=== PATIENT | female | born 1950 | race Caucasian/White ===

== ENCOUNTER → 2016-06-27 | Outpatient (CLI) | payer OTHER ==
[~2016-06-27] MED LIST: ALBUAER19 INH; ATOR10TA88 PO; CEFU1TAB36 PO; FLUT0.15 NAE; MULT-506 PO; NAPR1TAB9 PO; SYN112 PO
[2016-06-27 12:54] LABS: ALT/SGPT 25 U/L (12-78); BLOOD UREA NITROGEN 15 mg/dl (7-18); BUN/CREATININE RATIO 20.4 (10-20); CARBON DIOXIDE 30 mmol/L (21-32); CHLORIDE 106 mmol/L (98-107); CHOLESTEROL 189 mg/dl (0-200); CREATININE 0.73 mg/dl (0.60-1.20); GLUCOSE 84 mg/dl (70-99); SODIUM 142 mmol/L (136-145)
[2016-06-27 13:04] LABS: ALB/GLOB RATIO 1.1 (0.9-2); ALKALINE PHOSPHATASE 77 U/L (45-117); AST/SGOT 15 U/L (15-37); CHOLESTEROL/HDL RATIO 2.6; HDL CHOLESTEROL 73 mg/dl; LDL CHOLESTEROL CALCULATED 98 mg/dl; THYROID STIMULATING HORMONE 0.752 uIu/ml (0.300-4.500); TRIGLYCERIDES 92 mg/dl (0-150); VERY LOW DENSITY LIPOPROT CALC 18 mg/dl
== END | disposition home or self-care (01) ==
LOC: C.LABBFT 07:57
PROVIDERS: ATTEND Nurse Practitioner
DX: E78.00 Pure hypercholesterolemia, unspecified (principal); E03.9 Hypothyroidism, unspecified

== ENCOUNTER → 2017-07-16 | Outpatient (CLI) | payer OTHER ==
[~2017-07-16] MED LIST changes: +ATOR10TA82 PO; -ATOR10TA88 PO
[2017-07-16 16:53] LABS: BASO % 0.3 %; BASO ABS # 0.02 K/uL (0-0.2); EOS % 3.7 %; EOS ABS # 0.23 K/uL (0-0.5); HEMATOCRIT 44.3 % (37-47); HEMOGLOBIN 14.5 g/dL (12.0-16.0); IG# 0.01 K/uL (0.00-0.02); LYMPH % 33.2 %; LYMPH ABS # 2.05 K/uL (1.2-3.4); MEAN CORPUSCULAR HEMOGLOBIN 29.1 pg (25-34); MEAN CORPUSCULAR HGB CONC 32.7 g/dl (32-36); MEAN PLATELET VOLUME 9.9 fL (7.4-10.4); MONO % 8.1 %; NEUT % 54.5 %; NEUT ABS # 3.36 K/uL (1.4-6.5); PLATELET COUNT 303 K/uL (130-400); RED CELL DISTRIBUTION WIDTH SD 45.4 fL (36.4-46.3); WHITE BLOOD COUNT 6.17 K/uL (4.8-10.8)
[2017-07-16 16:58] LABS: ALBUMIN 3.7 gm/dl (3.4-5.0); ALT/SGPT 23 U/L (12-78); AST/SGOT 11 U/L (15-37); BLOOD UREA NITROGEN 12 mg/dl (7-18); CALCIUM 8.8 mg/dl (8.5-10.1); CARBON DIOXIDE 27 mmol/L (21-32); CREATININE 0.69 mg/dl (0.60-1.20); GLUCOSE 86 mg/dl (70-99); POTASSIUM 4.2 mmol/L (3.5-5.1); SODIUM 138 mmol/L (136-145)
[2017-07-16 17:09] LABS: ALKALINE PHOSPHATASE 80 U/L (45-117); CHOLESTEROL 156 mg/dl (0-200); LDL CHOLESTEROL CALCULATED 78 mg/dl; TOTAL PROTEIN 7.4 gm/dl (6.4-8.2)
== END | disposition home or self-care (01) ==
LOC: C.LABBFT 12:26
PROVIDERS: ATTEND Nurse Practitioner
DX: E03.9 Hypothyroidism, unspecified (principal); E78.00 Pure hypercholesterolemia, unspecified

== ENCOUNTER 2024-05-22 01:12 | Observation (INO) ==
--- OUTSIDE RECORDS SUMMARY | 2024-05-22 01:18 | External Medical Summary | Summary of Care ---
Author Name Unknown Organization [facility] Address [address] [place] [place] [address] Phone [phone] Care Team Providers Care Spectacle Truer Name Role Phone Connie Gan MD Primary Care Provider [phone] Encounter Details Date Type Department Care Team (Late st Contact Info) Description 04/30/2024 Population Health External Data Unspecified Department Allergies Active Allergy Reactions Criticality Noted Date Comments Neomycin-Bacitracin Zn-Polymyx 05/06 documented as of this encounter (statuses as of 04/30/2024) Medications LEVOTHYROXINE SODIUM 112 MCG OR TABS 1 tab daily Active ATORVASTATIN CALCIUM 10 MG PO TABS 1 tab daily Active FLUTICASONE PROPIONATE 50 MCG/ACT NA SUSP as needed Acti ve ALEVE 220 MG PO CAPS as needed Active Azelastine HCl 0.1 % nasal sprayIndications :Angioma As needed 8 Active Ketoconazole 2 % External Shampoo (Nizoral)Indicat ions:Seborrheic dermatitis of scalp Wash scalp 1-2x a week 120 mL 1 2 Active Additional Information Patient not taking.Reported on 11/19/2022 CoQ10 100 MG Oral Capsule Take by mouth. Ac tive Triamcinolone Acetonide 0.1 % External Ointment (Aristocort)Sudha cations:Dermatit is Apply to hands/hairline up to twice daily as needed 30 g 1 3 Active ZyrTEC Allergy 10 MG Oral Capsule (Cetirizine HCl) Take 1 Capsule by mouth in the morning. Active Betamethasone Dipropionate 0.05 % External Ointment Apply to hands two times a day for 2 weeks, then stop for 2 weeks 45 g 1 4 Active documented as of this encounter (statuses as of 04/30/2024) Active Problems Problem Noted Date Diagnosed Date Family history of malignant melanoma 06/08/2013 documented as of this encounter (statuses as of 04/30/2024) Resolved Problems Problem Noted Date Diagnosed Date Resolved Date Encounter for examination fo r normal comparison and control in clinical research program 01/13/2018 11/09/2019 Overview (07/25/2020): DO NOT DELETE Viddyad DETECT Study: Project # [id number], Lock Maintenance Supervisor: Mehdi Aviles, PhD. SUMMARY: Goal: Establish test characteristics (sensitivity, specificity, PPV, NPV) of a circulating tumor DNA (ctDNA)-based test for cancer. Hypothesis: Circulating tumor DNA (ctDNA) and elevated protein biomarkers (together, the marker panel) can be detected in asymptomatic individuals with early cancer. Specific Aim 1: Determine the prevalence of a positive marker panel test in a prospective clinical cohort of 10,000 asymptomatic women ages 65 to 75 years. Specific Aim 2: Determine the sensitivity, specificity, positive predictive value (PPV) and negative predictive value (NPV) of a marker panel test to identify histologically proven cancers that develop within 5-years of the marker panel evaluation. CONTACTS: During normal business hours, contact study staff at ; after hours Lock Maintenance Supervisor via the [facility] clamp operator . Please contact study team before resolving/deleting from patients problem list. Study phone number: [phone]. Diagnosis changed due to Research Module. Go to Snapshot for study details. Encounter for examination fo r normal comparison and control in clinical research program 01/13/2018 12/07/2021 Overview (07/25/2020): DO NOT DELETE - [facility]iddyad DETECT Study: Project # [id number], Lock Maintenance Supervisor: Shawn Horowitz, MS, MPH. SUMMARY: Goal: Establish test characteristics (sensitivity, specificity, PPV, NPV) of a circulating tumor DNA (ctDNA)-based test for cancer. - Hypothesis: Circulating tumor DNA (ctDNA) and elevated protein biomarkers (together, the marker panel) can be detected in asymptomatic individuals with early cancer. - Specific Aim 1: Determine the prevalence of a positive marker panel test in a prospective clinical cohort of 10,000 asymptomatic women ages 65 to 75 years. - Specific Aim 2: Determine the sensitivity, specificity, positive predictive value (PPV) and negative predictive value (NPV) of a marker panel test to identify histologically proven cancers that develop within 5-years of the marker panel evaluation. - CONTACTS: During normal business hours, contact study staff at ; after hours Lock Maintenance Supervisor via the [facility] clamp operator . - Please contact study team before resolving/deleting from patients problem list. Study phone number: [phone]. Diagnosis changed due to Research Module. Go to Snapshot for study details. documented as of this encounter (statuses as of 04/30/2024) Social History Tobacco Use Types Packs/Day Years Used Date Smoking Tobacco: Never Smokeless Tobacco: Never Alcohol Use Standard Drinks/Week Comments Yes 0 (1 standard drink = 0.6 oz pur e alcohol) occ Utilities Answer Date Recorded Do you have trouble paying y our heating, water, or electric bill? (Adult - for ages 18 years and over) Not on file 09/24/2023 Is your family able to pay t he heat, water, or electric bill? (Household - for ages 0-17 years) Not on file 09/24/2023 Does your family have access to good internet? (Household - for ages 0-17 years) Not on file 09/24/2023 Social Connections Answer Date Recorded How often do you feel lonely or isolated from those around you? (Adult - for ages 18 years and over) Not on file 09/24/2023 Comments Unknown Sex and Gender Information Value Date Recorded Sex Assigned at Not on file Legal Sex Female 7:21 AM EST Gender Identity Not on file Sexual Orientation Not on file documented as of this encounter Plan of Treatment Upcoming Encounters Date Type Department Care Team (Late st Contact Info) Description 11/11/2024 1:40 PM EDT Office Visit [facility] [place] [address] [place] [address] Natali Mijares PA-C [address] [place] [address] Health Maintenance Due Date Last Done Comments Lipid Panel 1951 Depression Screening 1963 Hepatitis C Screening 1969 TSH 1969 DTap/Tdap Vaccines (1 - Tdap) 1970 Cologuard 1996 Colonoscopy 1996 Colorectal Cancer Screening 1996 Fecal Occult Blood Test 1996 Sigmoidoscopy 1996 Zoster Vaccines (2 of 2) 04/14/2013 013, 02/17/2013 COVID-19 Vaccine (1 - 2023-2 5 season) 2023 Influenza Vaccine (FLU shot) (#1) 2023 01/22/2019 Mammogram 04/24/2024 04/24/2023, 04/18/2022, 04/12/2021 DXA Scan 01/22/2030 01/22/2023 Pneumococcal Vaccine: 50+ Years Completed 07/16/2017, 07/02/2016 HPV (Gardasil) Vaccine Aged Out No lo nger eligible based on patient's age to complete this topic Hepatitis B Vaccine Aged Out No longe r eligible based on patient's age to complete this topic MENINGOCOCCAL (MENACTRA/MENVEO) Aged Out No longer eligible b ased on patient's age to complete this topic documented as of this encounter Medical Devices Not on filedocumented as of this encounter Care Teams Spectacle Truer Relationship Specialty Start Date End Date Connie Gan MD [address] [place] [address] PCP - General Internal Medicine 06/08/13 documented as of this encounter
[2024-05-22 01:20] VITALS: TEMP 98.2
[2024-05-22] MEDS: AMIODARONE 150MG / 100ML D5W IV ONE (01:37)
[2024-05-22 01:44] LABS: iSTAT Hemoglobin 14.3 g/dl (12.0-16.0); iSTAT Ionized Calcium 1.12 mmol/l (1.12-1.32); iSTAT Potassium 3.5 mmol/L (3.3-5.0)
[2024-05-22 01:52] LABS: Basophils # (auto) 0.07 K/uL (0.00-0.20); Basophils % (auto) 0.7 %; Eosinophils # (auto) 0.31 K/uL (0.00-0.50); Hematocrit (blood only) 42.9 % (37.0-47.0); Hemoglobin 14.1 g/dl (12.0-16.0); Immature Granulocytes # (auto) 0.03 K/uL (0.01-0.20); Immature Granulocytes % (auto) 0.3 %; Lymphocytes # (auto) 4.44 K/uL (1.20-3.40); Lymphocytes % (auto) 42.7 %; Mean Corpuscular Hemoglobin 29.4 pg (25.0-34.0); Mean Corpuscular Hgb Conc 32.9 g/dL (32.0-36.0); Mean Corpuscular Volume 89.6 fL (80.0-100.0); Mean Platelet Volume 9.5 fL (9.4-12.4); Monocytes # (auto) 0.93 K/uL (0.11-0.59); Monocytes % (auto) 8.9 %; Neutrophils # (auto) 4.62 K/uL (1.40-6.50); Neutrophils % (auto) 44.4 %; Platelet Count 319 K/uL (130-400); RDW Coefficient of Variation 13.2 % (11.5-14.5); RDW Standard Deviation 43.2 fL (36.4-46.3); Red Blood Count 4.79 M/uL (4.20-5.40)
[2024-05-22 02:04] LABS: Albumin Globulin Ratio 1.5 (0.9-2); Albumin Level 4.5 gm/dl (3.4-5.0); BUN Creatinine Ratio 22.9 (10-20); Bilirubin,Total 0.3 mg/dl (0.2-1.0); Calcium 9.2 mg/dl (8.6-10.3); Creatinine Clr Calc Pharmacy 59.9 ml/min; Potassium 3.5 mmol/L (3.5-5.1); Total Protein 7.5 gm/dl (6.0-8.3)
[2024-05-22 02:11] LABS: Troponin I High Sensitivity 13.5 pg/ml (0-14)
[2024-05-22] MEDS ORDERED: 0.2 MICRON FILTER SET 1 EACH IV ONE ×2 (02:17→02:18)
[2024-05-22 02:20] LABS: Thyroid Stimulating Hormone 6.571 uIu/ml (0.300-4.500)
[2024-05-22] MEDS: AMIODARONE 360MG / 200ML D5W IV ONE (02:20)
[2024-05-22 02:21] LABS: INR 0.9 (0.9-1.1); Partial Thromboplastin Time 28 Seconds (21-31); Prothrombin Time 9.9 Seconds (9.0-12.0)
[2024-05-22] MEDS: AMIODARONE / D5W 150 MG/100 ML BAG IV STA ×2 (02:26→02:27)
[2024-05-22 02:36] LABS: Phosphorus 4.1 mg/dl (2.5-4.9)
[2024-05-22] MEDS: SODIUM CHLORIDE 0.9% 1,000 ML IV ONE (02:38)
[2024-05-22 02:55] LABS: T4 Free Thyroxine 1.01 ng/dl (0.61-1.60)
--- NOTE | 2024-05-22 03:28 | XRay Report ---
EXAM: XR chest 1V portable CLINICAL HISTORY: Dysrhythmia TECHNIQUE: An X-ray image of the chest is obtained in AP projection. COMPARISON: 07/08/2014. FINDINGS: Pulmonary Parenchyma: Small opacities seen in the lower zones of both lungs, more prominent on the left side. Prominent perihilar bronchovascular markings. Hyperinflated both lungs. No evidence of pleural effusion or pleural thickening. Heart and Mediastinum: Mild cardiomegaly. Atherosclerotic changes of the aortic arch. No mediastinal widening or masses. No hilar or mediastinal lymphadenopathy. Bony Thorax: Degenerative changes of the visualized skeleton. Bony thorax appears intact without fractures or deformities. Soft Tissues: Soft tissues overlying the chest wall are unremarkable. IMPRESSION: 1. Mild cardiomegaly with perihilar congestion. 2. Small right lower zone opacity. Redemonstration of left lower zone opacity. This could be due to atelectasis/inflammatory or infectious process. Need clinical correlation. 3. Otherwise, no significant interval changes. Electronically signed by Arturo Durham 05-22-2024 03:28 AM
--- NOTE | 2024-05-22 03:31 | Pre Anesthesia Assessment ---
Date of Service May 22, 2024 Pre Sedation Assessment Vital Signs Temp Pulse Pulse Resp BP BP Pulse Ox 05/22/24 07:50 60 05/22/24 06:14 64 17 132/80 97 05/22/24 05:00 65 18 145/88 H 98 05/22/24 04:50 75 17 145/88 H 96 05/22/24 04:50 73 17 95 05/22/24 04:40 66 18 134/87 97 05/22/24 04:35 67 20 132/88 99 05/22/24 04:30 66 18 152/87 H 99 05/22/24 04:25 65 20 144/79 H 99 05/22/24 04:20 68 16 129/82 97 05/22/24 04:15 71 18 144/80 H 96 05/22/24 04:10 72 20 130/79 97 05/22/24 04:05 70 16 138/83 99 05/22/24 04:00 69 18 135/88 99 05/22/24 03:55 72 18 138/82 99 05/22/24 03:50 69 20 95/71 L 94 05/22/24 03:45 73 20 100/76 98 05/22/24 03:41 82 05/22/24 03:40 157 H 18 108/74 100 05/22/24 03:35 160 H 20 107/77 96 05/22/24 03:00 158 H 20 132/93 97 05/22/24 02:31 166 H 20 129/71 95 05/22/24 02:00 144 H 18 108/73 95 05/22/24 01:58 151 H 05/22/24 01:43 157 H 20 134/77 95 05/22/24 01:31 218 H 05/22/24 01:24 183 H 05/22/24 01:16 36.8 C 196 H 18 141/90 H 96 05/22/24 01:13 95 O2 Del Method O2 Flow Rate 05/22/24 07:50 05/22/24 06:14 Room Air 05/22/24 05:00 Room Air 05/22/24 04:50 Room Air 05/22/24 04:50 Room Air 05/22/24 04:40 Room Air 05/22/24 04:35 Room Air 05/22/24 04:30 Room Air 05/22/24 04:25 Room Air 05/22/24 04:20 Room Air 05/22/24 04:15 Room Air 05/22/24 04:10 Room Air 05/22/24 04:05 Nasal Cannula 2 05/22/24 04:00 Nasal Cannula 2 05/22/24 03:55 Nasal Cannula 4 05/22/24 03:50 Nasal Cannula 4 05/22/24 03:45 Nasal Cannula 4 05/22/24 03:41 05/22/24 03:40 Nasal Cannula 4 05/22/24 03:35 Room Air 05/22/24 03:00 Room Air 05/22/24 02:31 Room Air 05/22/24 02:00 Room Air 05/22/24 01:58 05/22/24 01:43 Room Air 05/22/24 01:31 05/22/24 01:24 05/22/24 01:16 Room Air 05/22/24 01:13 Room Air 0 Cardiovascular + tachycardic and + irregularly irregular + capillary refill normal Respiratory normal respiratory effort, lungs clear to auscultation Pre-Sedation Airway Assessment Smoking Status: Never smoker Mallampati Class: I ASA: ASA1 NPO Status Date of Last Intake of Fluids: 05/21/24 Time of Last Intake of Fluids: 23:00 Last Oral Intake of Fluids Comment: water Date of Last Intake of Solid Food: 05/21/24 Time of Last Intake of Solid Foods: 21:00 Last Intake of Solids Comment: pizza Procedure Planning Contraindications for Sedation: none Current Medications Reviewed: Yes Notes The planned sedation has been discussed with the patient. Informed Consent was obtained. I have identified the patient, determined the appropriateness of sedation and have assessed the patient immediately prior to the procedure. All medicine(s) and interventions are by my order.
--- NOTE | 2024-05-22 04:07 | History & Physical Report ---
Date of Service May 22, 2024 Assessment & Plan (1) Atrial fibrillation with RVR: (2) Atrial premature depolarization with aberrant ventricular conduction: (3) Left bundle branch block: (4) Palpitations: (5) History of bradycardia: (6) Tachy-wiley syndrome: Plan The patient is a 73-year-old female with a past medical history including syncope, nontoxic multinodular goiter, osteopenia, left bundle branch block, hypothyroidism, hypercholesterolemia, colonic diverticulosis, seborrheic dermatitis, chronic venous insufficiency, post bilateral GSV ablation, and disorders of trigeminal nerve.The patient presented to the emergency department with complaint of increased heart rate while working in her basement, and radiating up into her neck. She has had a cardiac implantable electronic device inplanted and monitored by Dr. Rober Marie. [facility], patient was found to be in atrial fibrillation with RVR with aberrancy, with rate up to a maximum of 218. Patient remained in this variable rapid rate from 150s to 180s for at least 3 hours, despite being placed on amiodarone bolus/drip, and then underwent synchronized cardioversion by ED physician Dr. Garrett. She was then referred for evaluation to the [facility] service after successful conversion to normal sinus rhythm ranging in the 70s to 80s. Patient does have a known history of sinus bradycardia, for which the device had been implanted initially and had been noted to have bradycardic intervals in the past. #Atrial fibrillation with RVR with aberrancy/history of bradycardia/tachybradycardia syndrome/left bundle branch block- Patient had initially been started on amiodarone bolus/drip, with rate primarily be maintained in the 150s to 180s. She did undergo synchronized cardioversion after conscious sedation as noted by the ED She successfully converted to normal sinus rhythm in the 70s to 80s with maintained blood pressure Will continue amiodarone drip per protocol Start apixaban 5 mg p.o. twice daily The patient will be admitted to telemetry for serial cardiac enzymes, serial EKG's, cardiac rhythm monitoring and a 2-D echocardiogram with Dopplers. Potassium 3.5, will be placed on normal saline plus KCl 20 mEq at 100 mL/h x 1 L Magnesium level 2.0 Follow serial CBC with differential, chemistry profile and magnesium levels Consult cardiology Hyperlipidemia- Continue atorvastatin 10 mg daily Hypothyroidism- Continue levothyroxine 112 mcg daily History of Present Illness Chief Complaint: The patient presented to the emergency department with complaint of increased h eart rate while working in her basement, and radiating up into her neck. She had a cardiac implantable electronic device planted and monitored by Dr. Rober Marie. Upon arrival to emergency department, patient was found to be in atrial fibrillation with RVR, with rate up to a maximum of 218. Patient remained in this variable rapid rate from 150s to 180s for at least 3 hours, and then underwent synchronized cardioversion by Dr. Garrett., and then referred for evaluation to the [facility] service after successful conversion to normal sinus rhythm ranging in the 70s to 80s. Patient does have a known history of sinus bradycardia, for which the device had been implanted and had been noted to have bradycardic intervals in the past. Primary Care Provider: FRANCE Lucas The patient is a 73-year-old female with a past medical history including syncope, nontoxic multinodular goiter, osteopenia, left bundle branch block, hypothyroidism, hypercholesterolemia, colonic diverticulosis, seborrheic dermatitis, chronic venous insufficiency, post bilateral GSV ablation, and disorders of trigeminal nerve.The patient presented to the emergency department with complaint of increased heart rate while working in her basement, and radiating up into her neck. She had a cardiac implantable electronic device planted and monitored by Dr. Rober Marie. Upon arrival to emergency department, patient was found to be in atrial fibrillation with RVR, with rate up to a maximum of 218. Patient remained in this variable rapid rate from 150s to 180s for at least 3 hours, and then underwent synchronized cardioversion by Dr. Garrett., and then referred for evaluation to the [facility] s ervice after successful conversion to normal sinus rhythm ranging in the 70s to 80s. Patient does have a known history of sinus bradycardia, for which the device had been implanted and had been noted to have bradycardic intervals in the past. Allergies Allergy/AdvReac Type Severity Reaction Status Date / Time bacitracin Allergy Mild INFLAMMATIO Verified 12/23/23 14:39 N neomycin Allergy Mild INFLAMMATIO Verified 12/23/23 14:39 N polymyxin B Allergy Mild INFLAMMATIO Verified 12/23/23 14:39 N tar shampoo Allergy Severe hives/welts Uncoded 12/23/23 14:39 on skin, looked like large bug bites Home Medications Medication Instructions Recorded Confirmed Type cetirizine 10 mg capsule (Zyrtec) 10 mg PO DAILY 09/20/23 05/22/24 History fluticasone propionate 50 2 spray intranasal DAILY #16 grams 10/04/23 05/22/24 Rx mcg/actuation nasal spray,suspension coenzyme Q10 100 mg capsule 100 mg PO DAILY 12/23/23 05/22/24 History azelastine 137 mcg (0.1 %) nasal 2 spray intranasal .COMPLEX #30 mL 02/18/24 0 05/22/24 Rx spray atorvastatin 10 mg tablet 10 mg PO DAILY #90 tabs 04/28/24 05/22/24 Rx levothyroxine 112 mcg tablet 112 mcg PO DAILY #90 tabs 04/28/24 05/22/24 Rx Past Med/Surg History Problem List (Updated 05/22/24 @ 05:29 by Nathan Malhotra MD) Tachy-wiley syndrome History of bradycardia Atrial premature depolarization with aberrant ventricular conduction Atrial fibrillation with RVR Encounter for interrogation of cardiac recorder Syncope Postmenopausal estrogen deficiency Varicose veins of both lower extremities (Acute) Osteopenia (Acute) Nontoxic multinodular goiter (Acute) Left bundle branch block (Acute) Hypothyroidism (Chronic 10/11/10) Hypercholesterolemia (Acute) Diverticulosis of colon (Acute) Seborrheic dermatitis Palpitations Chronic venous insufficiency Other disorders of trigeminal nerve Medical History Pain in both lower legs Trochanteric bursitis History of ankle fracture Surgical History History of tubal ligation History of tooth extraction History of colonoscopy Family History Father Myocardial infarction Allergic rhinitis Asthma Sister Cancer of parotid gland Mother Hypertension Hypercholesterolemia Grandmother (Maternal) Ovarian cancer Brother Renal cell carcinoma Denies family history of Prostate cancer Diabetes Breast cancer Colorectal cancer Social History Smoking Status: Never smoker Second Hand Exposure: Yes; Do You Dip or Chew Tobacco: No; Hx Alcohol Use: Yes Hx Substance Use: No Preferred Language: Upper Sorbian Communication Ability: Effective Visual Impairment: No Limitations Hearing Ability: Normal Beliefs That Will Affect Care: None marital status: Current Living Situation: Spouse Current Living Situation Comment: lives with ex- current occupational status: retired 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 [employer] Feels Safe at Home: Yes Childhood Exposure to Second-Hand Smoke: Yes Diet: regular caffeine: No during the past year weight has: remained stable Dental Care, Regularly: Yes Physical Activity Frequency: 1-2 Times per Week Seatbelt Use: always Sunscreen Use: Yes Assistive Devices: None Review of Systems Review of Systems: The patient denies shortness of breath, dyspnea on exertion, cough, lower extremity swelling, sore throat, fevers, chills, sweats, weight change, fatigue, nausea, vomiting, diarrhea , constipation, abdominal pain, pelvic pain, blood in urine or stool, dysuria, urinary frequency or urgency, lightheadedness, dizziness, headache, memory loss, loss of consciousness, rash, abnormal bruising or bleeding, imbalance, focal or generalized weakness, numbness or tingling in arms or legs, generalized arthralgias or myalgias, back or neck pain, or night sweats. The review of systems is otherwise negative other than for that already noted above, and at least 10 systems have been reviewed. Physical Exam Physical Exam: The patient is awake, alert and oriented 3, well developed and well nourished, normocephalic and atraumatic, lying in bed and in no acute distress. HEENT--PERRL, EOMI, mucous membranes and oropharynx mildly dry. Neck--supple. No JVD. No bruits. Thyroid normal, trachea midline, no adenopathy. Heart--normal S1 and S2. Status post cardioversion. No murmurs, rubs or gallops. Lungs--clear bilaterally, no respiratory distress, no accessory muscle use. Abdomen--normal bowel sounds and soft. Nontender. Nondistended, no hernias or masses, no organomegaly. Extremities--no cyanosis or clubbing. No edema. There are good distal pulses b/l. Dermatologic--normal skin turgor, normal color, no abnormal lymph nodes, no rash. Neurologic--cranial nerves II through XII grossly intact. Rheumatologic--normal range of motion. Psychiatric--normal affect. Results & Data Results & Data Vital Signs (Past 12 Hours) Vital Signs Temp Pulse Pulse Resp BP BP Pulse Ox 05/22/24 03:41 82 05/22/24 03:00 158 H 20 132/93 97 05/22/24 02:31 166 H 20 129/71 95 05/22/24 02:00 144 H 18 108/73 95 05/22/24 01:58 151 H 05/22/24 01:43 157 H 20 134/77 95 05/22/24 01:31 218 H 05/22/24 01:24 183 H 05/22/24 01:16 36.8 C 196 H 18 141/90 H 96 05/22/24 01:13 95 O2 Del Method O2 Flow Rate 05/22/24 03:41 05/22/24 03:00 Room Air 05/22/24 02:31 Room Air 05/22/24 02:00 Room Air 05/22/24 01:58 05/22/24 01:43 Room Air 05/22/24 01:31 05/22/24 01:24 05/22/24 01:16 Room Air 05/22/24 01:13 Room Air 0 Laboratory Results Laboratory Results WBC 10.40 K/ul (4.8-10.8) 05/22/24 01:27 RBC 4.79 M/uL (4.20-5.40) 05/22/24 01:27 Hgb 14.1 g/dl (12.0-16.0) 05/22/24 01:27 POC Hgb 14.3 g/dl (12.0-16.0) 05/22/24 01:30 Hct 42.9 % (37.0-47.0) 05/22/24 01:27 POC Hct 42 % (37-47) 05/22/24 01:30 MCV 89.6 fL (80.0-100.0) 05/22/24 01:27 MCH 29.4 pg (25.0-34.0) 05/22/24 01:27 MCHC 32.9 g/dL (32.0-36.0) 05/22/24 01:27 RDW Std Deviation 43.2 fL (36.4-46.3) 05/22/24 01: RDW Coeff of Jovanny 13.2 % (11.5-14.5) 05/22/24 01: Plt Count 319 K/uL (130-400) 05/22/24 01:27 MPV 9.5 fL (9.4-12.4) 05/22/24 01:27 Immature Gran % (Auto) 0.3 % 05/22/24 01: Neut % (Auto) 44.4 % 05/22/24 01:27 Lymph % (Auto) 42.7 % 05/22/24 01:27 [place] % (Auto) 8.9 % 05/22/24 01: Eos % (Auto) 3.0 % 05/22/24 01: Baso % (Auto) 0.7 % 05/22/24 01: Neut # (Auto) 4.62 K/uL (1.40-6.50) 05/22/24 01:27 Lymph # (Auto) 4.44 K/uL (1.20-3.40) H 05/22/24 01:27 [place] # (Auto) 0.93 K/uL (0.11-0.59) H 05/22/24 01:27 Eos # (Auto) 0.31 K/uL (0.00-0.50) 05/22/24 01:27 Baso # (Auto) 0.07 K/uL (0.00-0.20) 05/22/24 01: Immature Gran # (Auto) 0.03 K/uL (0.01-0.20) 05/22/24 01:27 PT 9.9 Seconds (9.0-12.0) 05/22/24 01:27 INR 0.9 (0.9-1.1) 05/22/24 01: APTT 28 Seconds (21-31) 05/22/24 01: PTT Ratio 1.0 05/22/24 01:27 POC Sodium 140 mmol/L (135-144) 05/22/24 01:30 Sodium 140 mmol/L (136-145) 05/22/24 01:27 POC Potassium 3.5 mmol/L (3.3-5.0) 05/22/24 01:30 Potassium 3.5 mmol/L (3.5-5.1) 05/22/24 01:27 POC Chloride 105 mmol/L (101-112) 05/22/24 01:30 Chloride 105 mmol/L (98-107) 05/22/24 01:27 Carbon Dioxide 26 mmol/L (21-32) 05/22/24 01:27 POC Total CO2 24 mmol/L (24-31) 05/22/24 01:30 Anion Gap 9 (3-11) 05/22/24 01:27 POC Anion Gap 16.0 mmol/L (16-25) 05/22/24 01:30 POC BUN 22 mg/dl (7-18) H 05/22/24 01:30 BUN 22 mg/dl (6-23) 05/22/24 01:27 Creatinine 0.96 mg/dl (0.6-1.2) 05/22/24 01:27 POC Creatinine 1.0 mg/dl (0.6-1.3) 05/22/24 01:30 Est Cr Clr Drug Dosing 59.9 ml/min 05/22/24 01:27 eGFR 62.86 05/22/24 01:27 BUN/Creatinine Ratio 22.9 (10-20) H 05/22/24 01:27 Glucose 126 mg/dl (70-99(Fasting)) H 05/22/24 01:27 POC Glucose (other) 126 mg/dl (70-99) H 05/22/24 01:30 Calcium 9.2 mg/dl (8.6-10.3) 05/22/24 01:27 POC Ioniz Calcium Susana 1.12 mmol/l (1.12-1.32) 05/22/24 01:30 Phosphorus 4.1 mg/dl (2.5-4.9) 05/22/24 01:27 Magnesium 2.0 mg/dl (1.7-2.4) 05/22/24 01:27 Total Bilirubin 0.3 mg/dl (0.2-1.0) 05/22/24 01:27 AST 19 U/L (13-39) 05/22/24 01:27 ALT 20 U/L (7-52) 05/22/24 01:27 Alkaline Phosphatase 90 U/L (34-104) 05/22/24 01:27 Troponin I High Sens 13.5 pg/ml (0-14) 05/22/24 01:27 Total Protein 7.5 gm/dl (6.0-8.3) 05/22/24 01:27 Albumin 4.5 gm/dl (3.4-5.0) 05/22/24 01:27 Globulin 3.0 gm/dl (2.5-4.0) 05/22/24 01:27 Albumin/Globulin Ratio 1.5 (0.9-2) 05/22/24 01:27 TSH 6.571 uIu/ml (0.300-4.500) H 05/22/24 01:27 Free T4 1.01 ng/dl (0.61-1.60) 05/22/24 01:27 Ethyl Alcohol mg/dL < 10.0 mg/dl (<10.0) 05/22/24 01:59 Impressions Chest X-Ray 05/22/24 01:29 EXAM: XR chest 1V portable CLINICAL HISTORY: Dysrhythmia TECHNIQUE: An X-ray image of the chest is obtained in AP projection. COMPARISON: 07/08/2014. FINDINGS: Pulmonary Parenchyma: Small opacities seen in the lower zones of both lungs, more prominent on the left side. Prominent perihilar bronchovascular markings. Hyperinflated both lungs. No evidence of pleural effusion or pleural thickening. Heart and Mediastinum: Mild cardiomegaly. Atherosclerotic changes of the aortic arch. No mediastinal widening or masses. No hilar or mediastinal lymphadenopathy. Bony Thorax: Degenerative changes of the visualized skeleton. Bony thorax appears intact without fractures or deformities. Soft Tissues: Soft tissues overlying the chest wall are unremarkable. IMPRESSION: 1. Mild cardiomegaly with perihilar congestion. 2. Small right lower zone opacity. Redemonstration of left lower zone opacity. This could be due to atelectasis/inflammatory or infectious process. Need clinical correlation. 3. Otherwise, no significant interval changes. Electronically signed by Arturo Durham 05-22-2024 03:28 AM Code Status & VTE Plan Code Status Full code VTE Prophylaxis Plan VTE Prophylaxis will be ordered: Yes PG Care Time/CCT Total # of Minutes Spent Total Time Spent with Patient: Total time spent is greater than 50% in coordination of care (as documented) at patient's floor/unit and/or counseling patient: Coding Level of Care Code 71811 INT INP/OBS CARE 75MIN Diagnoses Atrial fibrillation with RVR I48.91 Atrial premature depolarization with aberrant ventricular conduction I49.1 Left bundle branch block I44.7 Palpitations R00.2 History of bradycardia Z87.898 Tachy-wiley syndrome I49.5
--- NOTE | 2024-05-22 04:11 | Emergency Department Note ---
ED Visit Note Cardioversion for unstable A-fib Indication: Cardioversion for A-fib Verbal consent obtained. Risks and benefits were explained with the usual cu stomary discussion. A time out was taken by attending who did the sedation. Once the patient was sedated, she was cardioverted at 100 J synchronized. Patient tolerated procedure well. Repeat EKG showed normal sinus with a left bundle branch block. The patient tolerated the procedure well. .
[2024-05-22] MEDS: ETOMIDATE 2 MG/ML 20 ML VIAL IV ONE (04:19)
[2024-05-22] MEDS: NSS + 20MEQ KCL 20 MEQ/1,000 ML BAG IV SCH (04:42)
[2024-05-22] MEDS ORDERED: ACETAMINOPHEN 325 MG TAB PO PRN (04:50)
[2024-05-22] MEDS: LEVOTHYROXINE SODIUM 112 MCG TABLET PO SCH (07:09)
[2024-05-22] MEDS: ATORVASTATIN 10 MG TAB PO SCH (08:19)
[2024-05-22] MEDS: FLUTICASONE PROPIONATE NA SPR 16 GM BTL NAE SCH (08:19)
[2024-05-22] MEDS: CETIRIZINE HCL 10 MG TABLET PO SCH (08:19)
--- NOTE | 2024-05-22 08:31 | Emergency Department Note ---
Post Sedation Assessment Vital Signs Temp Pulse Pulse Resp BP BP Pulse Ox 05/22/24 04:05 70 16 138/83 99 05/22/24 04:00 69 18 135/88 99 05/22/24 03:55 72 18 138/82 99 05/22/24 03:50 69 20 95/71 L 94 05/22/24 03:45 73 20 100/76 98 05/22/24 03:41 82 05/22/24 03:40 157 H 18 108/74 100 05/22/24 03:35 160 H 20 107/77 96 05/22/24 03:00 158 H 20 132/93 97 05/22/24 02:31 166 H 20 129/71 95 05/22/24 02:00 144 H 18 108/73 95 05/22/24 01:58 151 H 05/22/24 01:43 157 H 20 134/77 95 05/22/24 01:31 218 H 05/22/24 01:24 183 H 05/22/24 01:16 36.8 C 196 H 18 141/90 H 96 05/22/24 01:13 95 O2 Del Method O2 Flow Rate 05/22/24 04:05 Nasal Cannula 2 05/22/24 04:00 Nasal Cannula 2 05/22/24 03:55 Nasal Cannula 4 05/22/24 03:50 Nasal Cannula 4 05/22/24 03:45 Nasal Cannula 4 05/22/24 03:41 05/22/24 03:40 Nasal Cannula 4 05/22/24 03:35 Room Air 05/22/24 03:00 Room Air 05/22/24 02:31 Room Air 05/22/24 02:00 Room Air 05/22/24 01:58 05/22/24 01:43 Room Air 05/22/24 01:31 05/22/24 01:24 05/22/24 01:16 Room Air 05/22/24 01:13 Room Air 0 Recovery Score Activity: Moves 4 extremities Respiration: Deep Breath/Cough Circulation: +/-20% PreAnes Value Consciousness: Fully Awake Oxygen Saturation: > 92% On Room Air Post Anesthesia Score: 10 Discharge Sedation Level of Care: Phase I Unexpected Event: Ambu Bag Unexpected Event Comment: Patient became hypoxic for a very brief period of time (20 seconds.) Post Sedation Plan On clinical assessment, the patient appears to have tolerated the sedation without complications. Patient is recovering as anticipated. Patient will continue to be monitored by nursing and may be discharged when sedation discharge criteria are met per below protocol. Upon Completions of procedure up to 15 minutes continue every 5 minute vital signs and the P.A.R. score; then discharge to a Phase I or Fast Track to Phase II per the following guidelines: * Discharge Patient to appropriate Phase II area if PAR is 8 or greater or re turn to pre- procedure baseline. The post - procedure orders will be as directed. * If PAR score is less than 8 or not return to pre-procedure baseline then patient will follow Phase I monitoring till PAR is reached for Phase II. The Phase I may be done in procedure room or may call to secure a Phase I area. * If naloxone or flumazenil are used for reversal, hold in Phase I for continued monitoring from when last reversal dose was given for a minimum of 60 minutes or longer pending the nurse and/or physician discretion of patient condition before discharge to Phase II. Please call the Sedation Physician to re-evaluate and complete post-note for discharge to Phase II area. Do NOT discharge from procedure sedation or Phase 1 until post- sedation evaluation note is complete by procedure /sedation MD Sedation Discharge Instructions to be given to the patient at discharge to home. Sedation Data Sedation Times Sedation Start Date: 05/22/24 Sedation Start Time: 03:40 Sedation End Date: 05/22/24 Sedation End Time: 04:25 Total Sedation Time: 45 Procedure Times Procedure Start Time:: 03:45 Procedure End Time: 03:46
--- NOTE | 2024-05-22 08:33 | Emergency Department Note ---
Impression & Plan Ventricular tachycardia admit to the [facility] ED Provider Note NAME: TRACY LUCERO AGE: 73 SEX: Female INFORMANT: Patient ED PROVIDER(S): Zunilda Garrett DO CHIEF COMPLAINT: palpitations PLAN: Disposition: Admit to the [facility] MEDICAL DECISION MAKING: This is a 73-year-old female patient who suddenly felt palpitations and dizziness around midnight. Patient has a loop recorder in place since last summer for a previous episode of bradycardia. Patient's brought her to the emergency department through triage. Upon presentation to the emergency department, she was placed in room B-1 on the monitoring engineer and appeared to be in ventricular tachycardia. Two large bore IV's were initiated and the patient was placed on the code cart monitor and pads. A twelve-lead EKG was obtained and i-STAT labs were obtained. The patient was bolused with IV amiodarone. Patient remained hemodynamically stable at this time. I discussed the case with apparel trimmings sales representative on-call. We attempted a second IV amiodarone bolus while we awaited the patient's alcohol level. Other laboratory values revealed no leukocytosis or anemia. Coagulation studies were normal. BUN was slightly elevated at 22. TSH was 6.5. Free T4 was 1.0. Glucose was 126. Troponin was normal. Again, patient remained hemodynamically stable. A second twelve-lead EKG was obtained which showed the patient was in atrial fibrillation with rapid ventricular response. Alcohol level came back at 0. Patient's last food intake was 6 hours ago with water intake at approximately 4 hours ago. Decision was made to perform synchronized cardioversion. Physicians assistant education director performed the cardioversion while I performed the sedation and the patient was successfully cardioverted into a normal sinus rhythm. [facility] Care/management discussed with: [employer] Yard Worker on-call, [facility], and load manager Triage Nursing notes: reviewed and agree with them. Vital Signs: reviewed and remarkable for tachycardia Additional History obtained from: who is at the bedside Chronic Medical/Social Conditions affecting care: Episodes of bradycardia for which the patient currently has a loop recorder in place Prior/ Outside/ External records reviewed: I reviewed multiple previous cardiology records Differential Diagnosis: Cardiac dysrhythmia, cardiac ischemia, alcohol intoxication, electrolyte abnormality, thyroid dysfunction Diagnostics, independently interpreted by me: ECG: Wide-complex tachycardia at a rate of 170 with left bundle branch block. This is a poor baseline and makes it difficult to interpret. It is difficult to determine if this is ventricular tachycardia versus atrial fibrillation with rapid ventricular response and aberrancy repeat ECG: Atrial fibrillation with rapid ventricular response at a rate of 161 with a left bundle branch block. Repeat ECG: Normal sinus rhythm at a rate of 68 with a left bundle branch block. There were no obvious signs of ischemia And no significant ectopy. Cardiac Monitoring: Ventricular tachycardia at a rate of 220 Imaging studies: portable chest x-ray: Mild cardiomegaly with mild pulmonary vascular congestion as per my independent interpretation. HPI: 73 year old Female arrives for evaluation of palpitations. Patient explains that she suddenly began to feel palpitations in her chest that was lightheaded she then felt dizzy. The patient and her had been eating pizza and she had drank a gin and tonic before this had occurred. Her brought her to the emergency department. She was noted to be tachycardic in triage. She has had previous episodes of syncope where she was noted to be bradycardic and currently has a loop recorder in place. PAST MEDICAL HISTORY: See Below, PAST SURGICAL HISTORY: See Below, SOCIAL HISTORY: See Below, HOME MEDICATIONS: See list ALLERGIES: See list VITALS: See Below PHYSICAL EXAMINATION: HEENT: Head - normocephalic and atraumatic. Pupils are equal, round, and reactive to light. Extraocular eye muscles are intact, and sclera are anicteric. Nose - moist nasal mucosa without discharge. Mouth - moist buccal mucosa. Oropharynx is nonerythematous and there is no tonsillar exudate or edema noted. Neck: Supple; no JVD, nuchal rigidity, cervical lymphadenopathy, or auscultated bruits. Heart: Tachycardic rate and regular rhythm. There is a normal S1 and S2 with no murmurs, clicks, or gallops appreciated. Lungs: Clear to auscultation bilaterally with no wheezes, rales, or rhonchi. Abdomen: Soft, completely nontender, nondistended, with good bowel sounds. There are no palpable pulsatile masses or hepatosplenomegaly. There is no guarding, rigidity, or rebound noted. Extremities: No evidence of cyanosis, clubbing, or edema. There are easily palpable peripheral pulses. Skin: warm and dry with good turgor and no rashes. Please see procedure note dictation for synchronized cardioversion-Ijeoma Marroquin PA-C. Procedural Sedation Indication synchronized cardioversion. Total time: 45 minutes. Written consent was obtained after the risks and benefits were explained to the patient, including, but not limited to aspiration, allergic reaction, breathing difficulties, cardiac complications, vomiting, pain, event recall, bleeding, and/or infection. Pre-sedation examination and paperwork completed. The patient was on nasal cannula prior to the procedure. Continous end tidal CO2 monitoring, pulse oximetry, and cardiac monitoring were utilized. Suction, airway equipment, medications, respiratory equipment, and appropriate personnel were prepared prior to the initiation of the procedure. A time out was taken. Sedation was achieved utilized using 30 mg of IV etomidate. After I observed the patient had reached the appropriate level of sedation the main procedure was performed. After the procedure was performed, the patient had a very brief episode of hypoxia. She received bag valve ventilation for approximately 20 seconds which returned her oxygen saturation to 100%. She continued to receive O2 by nasal cannula which maintained her oxygen saturation greater than 95%. Sedation was discontinued and the monitoring continued. Emergency Department treatment: laboratory monitor, IV normal saline bolus, IV amiodarone bolus x 2 emergency department course: The patient was evaluated in room B-1. A complete history and physical was performed. 2 large bore IV locks were initiated and an i-STAT was performed. An order was placed for continuous cardiac monitoring. The patient was in ventricular tachycardia at a rate of 220. A portable chest x-ray was performed. A twelve-lead EKG was obtained. She was bolused with IV amiodarone. I discussed the case with the apparel trimmings sales representative on-call. She was given a second dose of IV amiodarone. Once laboratory studies returned, we prepared for synchronized cardioversion. Procedural sedation and synchronized cardioversion were performed as described and patient was successfully converted to a normal sinus rhythm. She was recovered here in the emergency department. I discussed the case with the [facility] Hospitalist and they will evaluate for further inpatient care. I have personally spent greater than 80 minutes of critical care time in the direct management of this patient. This includes bedside care, interpretation of diagnostic studies, and testing, discussion with consultants, patient, and family members, and other required patient management activities. This 80 minutes is in excess of all separately billable procedures. Past Med/Surg History Problem List (Updated 05/22/24 @ 08:33 by Zunilda Garrett DO) Ventricular tachycardia (Acute) Tachy-wiley syndrome History of bradycardia Atrial premature depolarization with aberrant ventricular conduction Atrial fibrillation with RVR Encounter for interrogation of cardiac recorder Syncope Postmenopausal estrogen deficiency Varicose veins of both lower extremities (Acute) Osteopenia (Acute) Nontoxic multinodular goiter (Acute) Left bundle branch block (Acute) Hypothyroidism (Chronic 10/11/10) Hypercholesterolemia (Acute) Diverticulosis of colon (Acute) Seborrheic dermatitis Palpitations Chronic venous insufficiency Other disorders of trigeminal nerve Medical History Pain in both lower legs Trochanteric bursitis History of ankle fracture Surgical History History of tubal ligation History of tooth extraction History of colonoscopy Family History Father Myocardial infarction Allergic rhinitis Asthma Sister Cancer of parotid gland Mother Hypertension Hypercholesterolemia Grandmother (Maternal) Ovarian cancer Brother Renal cell carcinoma Denies family history of Prostate cancer Diabetes Breast cancer Colorectal cancer Social History Smoking Status: Never smoker Second Hand Exposure: Yes; Do You Dip or Chew Tobacco: No; Hx Alcohol Use: Yes Alcohol type: other Hx Substance Use: No Preferred Language: Greek Communication Ability: Effective Visual Impairment: No Limitations Hearing Ability: Normal Production Potter Required: No Beliefs That Will Affect Care: None marital status: Current Living Situation: Spouse Current Living Situation Comment: lives with ex- current occupational status: retired current occupation: retired from career with sales and customer service with [employer] Feels Safe at Home: Yes Childhood Exposure to Second-Hand Smoke: Yes Diet: regular caffeine: No during the past year weight has: remained stable Dental Care, Regularly: Yes Physical Activity Frequency: 1-2 Times per Week Seatbelt Use: always Sunscreen Use: Yes Assistive Devices: None Allergies Allergies Allergy/AdvReac Type Severity Reaction Status Date / Time bacitracin Allergy Mild INFLAMMATIO Verified 12/23/23 14:39 N neomycin Allergy Mild INFLAMMATIO Verified 12/23/23 14:39 N polymyxin B Allergy Mild INFLAMMATIO Verified 12/23/23 14:39 N tar shampoo Allergy Severe hives/welts Uncoded 12/23/23 14:39 on skin, looked like large bug bites Home Meds Home Medications Medication Instructions Recorded Confirmed cetirizine 10 mg capsule (Zyrtec) 10 mg PO DAILY 09/20/23 05/22/24 coenzyme Q10 100 mg capsule 100 mg PO DAILY 12/23/23 05/22/24 Previous Rx's Medication Instructions Recorded fluticasone propionate 50 2 spray intranasal DAILY #16 grams 10/04/23 mcg/actuation nasal spray,suspension azelastine 137 mcg (0.1 %) nasal 2 spray intranasal .COMPLEX #30 mL 02/18/24 spray atorvastatin 10 mg tablet 10 mg PO DAILY #90 tabs 04/28/24 levothyroxine 112 mcg tablet 112 mcg PO DAILY #90 tabs 04/28/24 amiodarone 200 mg tablet 200 mg PO BID #60 tabs 05/22/24 apixaban 5 mg tablet (Eliquis) 5 mg PO BID #60 tabs 05/22/24 Results & Data (ED) Vital Signs Vital Signs - 24 hr 05/22/24 01:13 05/22/24 01:16 05/22/24 01:24 Temperature 36.8 C Temperature Source Temporal Artery Scan Pulse Rate 196 H 183 H Pulse Rate [Apical] Pulse Rhythm Regular Pulse Rhythm [Apical] Pulse Strength Normal Pulse Strength [Apical] Respiratory Rate 18 Respiratory Effort / Characteristics Non-Labored Spontaneous Respiratory Depth Normal Respiratory Pattern Regular Blood Pressure 141/90 H Blood Pressure [Left Arm] Blood Pressure Mean 107 Blood Pressure Mean [Left Arm] Blood Pressure Position Sitting Blood Pressure Position [Left Arm] Pulse Oximetry 95 96 Oxygen Delivery Method Room Air Room Air Oxygen Flow Rate 0 Sepsis Recent Fever Within 48 Hours No Sepsis New/Unexplained Change in Mental Status N/A Sepsis Action Taken by Nursing No Action Required End Tidal CO2 (18-54mmHg) 05/22/24 01:31 05/22/24 01:43 05/22/24 01:58 Temperature Temperature Source Pulse Rate 218 H 151 H Pulse Rate [Apical] 157 H Pulse Rhythm Pulse Rhythm [Apical] Irregular Pulse Strength Pulse Strength [Apical] Normal Respiratory Rate 20 Respiratory Effort / Characteristics Non-Labored Spontaneous Respiratory Depth Normal Respiratory Pattern Regular Blood Pressure Blood Pressure [Left Arm] 134/77 Blood Pressure Mean Blood Pressure Mean [Left Arm] 96 Blood Pressure Position Blood Pressure Position [Left Arm] Lying Pulse Oximetry 95 Oxygen Delivery Method Room Air Oxygen Flow Rate Sepsis Recent Fever Within 48 Hours Sepsis New/Unexplained Change in Mental Status Sepsis Action Taken by Nursing End Tidal CO2 (18-54mmHg) 05/22/24 02:00 05/22/24 02:31 05/22/24 03:00 Temperature Temperature Source Pulse Rate Pulse Rate [Apical] 144 H 166 H 158 H Pulse Rhythm Pulse Rhythm [Apical] Irregular Irregular Irregular Pulse Strength Pulse Strength [Apical] Normal Normal Normal Respiratory Rate 18 20 20 Respiratory Effort / Characteristics Non-Labored Spontaneous Non-Labored Spontaneous Non-Labored Spontaneous Respiratory Depth Normal Normal Normal Respiratory Pattern Regular Regular Regular Blood Pressure Blood Pressure [Left Arm] 108/73 129/71 132/93 Blood Pressure Mean Blood Pressure Mean [Left Arm] 84 90 106 Blood Pressure Position Blood Pressure Position [Left Arm] Lying Lying Lying Pulse Oximetry 95 95 97 Oxygen Delivery Method Room Air Room Air Room Air Oxygen Flow Rate Sepsis Recent Fever Within 48 Hours Sepsis New/Unexplained Change in Mental Status Sepsis Action Taken by Nursing End Tidal CO2 (18-54mmHg) 05/22/24 03:35 05/22/24 03:40 05/22/24 03:41 Temperature Temperature Source Pulse Rate 160 H 157 H 82 Pulse Rate [Apical] Pulse Rhythm Pulse Rhythm [Apical] Pulse Strength Pulse Strength [Apical] Respiratory Rate 20 18 Respiratory Effort / Characteristics Non-Labored Spontaneous Non-Labored Spontaneous Respiratory Depth Normal Normal Respiratory Pattern Regular Regular Blood Pressure Blood Pressure [Left Arm] 107/77 108/74 Blood Pressure Mean Blood Pressure Mean [Left Arm] Blood Pressure Position Blood Pressure Position [Left Arm] Pulse Oximetry 96 100 Oxygen Delivery Method Room Air Nasal Cannula Oxygen Flow Rate 4 Sepsis Recent Fever Within 48 Hours Sepsis New/Unexplained Change in Mental Status Sepsis Action Taken by Nursing End Tidal CO2 (18-54mmHg) 35 33 05/22/24 03:45 05/22/24 03:50 05/22/24 03:55 Temperature Temperature Source Pulse Rate 73 69 72 Pulse Rate [Apical] Pulse Rhythm Pulse Rhythm [Apical] Pulse Strength Pulse Strength [Apical] Respiratory Rate 20 20 18 Respiratory Effort / Characteristics Non-Labored Spontaneous Non-Labored Spontaneous Non-Labored Spontaneous Respiratory Depth Normal Normal Normal Respiratory Pattern Regular Regular Regular Blood Pressure Blood Pressure [Left Arm] 100/76 95/71 L 138/82 Blood Pressure Mean Blood Pressure Mean [Left Arm] Blood Pressure Position Blood Pressure Position [Left Arm] Pulse Oximetry 98 94 99 Oxygen Delivery Method Nasal Cannula Nasal Cannula Nasal Cannula Oxygen Flow Rate 4 4 4 Sepsis Recent Fever Within 48 Hours Sepsis New/Unexplained Change in Mental Status Sepsis Action Taken by Nursing End Tidal CO2 (18-54mmHg) 37 39 37 05/22/24 04:00 05/22/24 04:05 Temperature Temperature Source Pulse Rate 69 70 Pulse Rate [Apical] Pulse Rhythm Pulse Rhythm [Apical] Pulse Strength Pulse Strength [Apical] Respiratory Rate 18 16 Respiratory Effort / Characteristics Non-Labored Spontaneous Non-Labored Spontaneous Respiratory Depth Normal Normal Respiratory Pattern Regular Regular Blood Pressure Blood Pressure [Left Arm] 135/88 138/83 Blood Pressure Mean Blood Pressure Mean [Left Arm] Blood Pressure Position Blood Pressure Position [Left Arm] Pulse Oximetry 99 99 Oxygen Delivery Method Nasal Cannula Nasal Cannula Oxygen Flow Rate 2 2 Sepsis Recent Fever Within 48 Hours Sepsis New/Unexplained Change in Mental Status Sepsis Action Taken by Nursing End Tidal CO2 (18-54mmHg) 38 38 Laboratory Data 05/22/24 01:27 05/22/24 01:27 Lab Results 05/22/24 05/22/24 05/22/24 Range/Units 01:27 01:30 01:59 WBC 10.40 (4.8-10.8) K/ul RBC 4.79 (4.20-5.40) M/uL Hgb 14.1 (12.0-16.0) g/dl POC Hgb 14.3 (12.0-16.0) g/dl Hct 42.9 (37.0-47.0) % POC Hct 42 (37-47) % MCV 89.6 (80.0-100.0) fL MCH 29.4 (25.0-34.0) pg MCHC 32.9 (32.0-36.0) g/dL RDW Std Deviation 43.2 (36.4-46.3) fL RDW Coeff of Jovanny 13.2 (11.5-14.5) % Plt Count 319 (130-400) K/uL MPV 9.5 (9.4-12.4) fL Immature Gran % (Auto) 0.3 % Neut % (Auto) 44.4 % Lymph % (Auto) 42.7 % [place] % (Auto) 8.9 % Eos % (Auto) 3.0 % Baso % (Auto) 0.7 % Neut # (Auto) 4.62 (1.40-6.50) K/uL Lymph # (Auto) 4.44 H (1.20-3.40) K/uL [place] # (Auto) 0.93 H (0.11-0.59) K/uL Eos # (Auto) 0.31 (0.00-0.50) K/uL Baso # (Auto) 0.07 (0.00-0.20) K/uL Immature Gran # (Auto) 0.03 (0.01-0.20) K/uL PT 9.9 (9.0-12.0) Seconds INR 0.9 (0.9-1.1) APTT 28 (21-31) Seconds PTT Ratio 1.0 POC Sodium 140 (135-144) mmol/L Sodium 140 (136-145) mmol/L POC Potassium 3.5 (3.3-5.0) mmol/L Potassium 3.5 (3.5-5.1) mmol/L POC Chloride 105 (101-112) mmol/L Chloride 105 (98-107) mmol/L Carbon Dioxide 26 (21-32) mmol/L POC Total CO2 24 (24-31) mmol/L Anion Gap 9 (3-11) POC Anion Gap 16.0 (16-25) mmol/L POC BUN 22 H (7-18) mg/dl BUN 22 (6-23) mg/dl Creatinine 0.96 (0.6-1.2) mg/dl POC Creatinine 1.0 (0.6-1.3) mg/dl Est Cr Clr Drug Dosing 59.9 ml/min eGFR 62.86 BUN/Creatinine Ratio 22.9 H (10-20) Glucose 126 H (70-99(Fasting)) mg/dl POC Glucose (other) 126 H (70-99) mg/dl Calcium 9.2 (8.6-10.3) mg/dl POC Ioniz Calcium Susana 1.12 (1.12-1.32) mmol/l Phosphorus 4.1 (2.5-4.9) mg/dl Magnesium 2.0 (1.7-2.4) mg/dl Total Bilirubin 0.3 (0.2-1.0) mg/dl AST 19 (13-39) U/L ALT 20 (7-52) U/L Alkaline Phosphatase 90 (34-104) U/L Troponin I High Sens 13.5 (0-14) pg/ml Total Protein 7.5 (6.0-8.3) gm/dl Albumin 4.5 (3.4-5.0) gm/dl Globulin 3.0 (2.5-4.0) gm/dl Albumin/Globulin Ratio 1.5 (0.9-2) TSH 6.571 H (0.300-4.500) uIu/ml Free T4 1.01 (0.61-1.60) ng/dl Ethyl Alcohol mg/dL < 10.0 (<10.0) mg/dl Administered Medications Discontinued Medications Amiodarone HCl/Dextrose (Amiodarone 150mg / 100ml D5w) Confirm Administered Dose 150 mg IV .Cycle Money-Lighting by LED ONE Stop: 05/22/24 01:29 Last Admin: 05/22/24 01:37 Dose: 150 mg Documented By: VERONIKA Co-signed By: Amiodarone HCl/Dextrose (Amiodarone 360mg / 200ml D5w) Confirm Administered Dose 360 mg IV .Cycle Money-MED ONE Stop: 05/22/24 01:29 Last Admin: 05/22/24 02:20 Dose: Not Given Documented By: VERONIKA Apixaban (Apixaban 5 Mg Tablet) 5 mg PO BID [facility] Stop: 06/21/24 08:59 Last Admin: 05/22/24 10:57 Dose: 5 mg Documented By: SRJami Atorvastatin Calcium (Atorvastatin 10 Mg Tab) 10 mg PO DAILY [facility] Stop: 06/21/24 08:59 Last Admin: 05/22/24 08:19 Dose: Not Given Documented By: SRL Cetirizine HCl (Cetirizine Hcl 10 Mg Tablet) 10 mg PO DAILY [facility] Stop: 06/21/24 08:59 Last Admin: 05/22/24 08:19 Dose: Not Given Documented By: SRL Etomidate (Etomidate 2 Mg/Ml 20 Ml Vial) Confirm Administered Dose 40 mg IV .STK-MED ONE Stop: 05/22/24 03:29 Last Admin: 05/22/24 04:19 Dose: 30 mg Documented By: VERONIKA Fluticasone Propionate (Fluticasone Propionate Na Spr 16 Gm Btl) 2 sprays VALERIA DAILY [facility]IANA Stop: 06/21/24 08:59 Last Admin: 05/22/24 08:19 Dose: Not Given Documented By: JESSICA Amiodarone HCl/Dextrose (Nexterone / D5w) 150 mg in 100 mls @ 600 mls/hr IV NOW STA Stop: 05/22/24 02:26 Last Admin: 05/22/24 02:26 Dose: Not Given Documented By: VERONIKA Amiodarone HCl/Dextrose (Nexterone / D5w) 150 mg in 100 mls @ 600 mls/hr IV NOW STA Stop: 05/22/24 02:27 Last Infusion: 05/22/24 02:38 Dose: Infused Documented By: VERONIKA Co-signed By: ANIYAH Admin: 05/22/24 02:27 Dose: 600 mls/hr Documented By: VERONIKA Co-signed By: ANIYAH Sodium Chloride (Nss) 1,000 mls @ 999 mls/hr IV .Q1H1M ONE Stop: 05/22/24 03:20 Last Infusion: 05/22/24 03:39 Dose: Infused Documented By: Admin: 05/22/24 02:38 Dose: 999 mls/hr Documented By: VERONIKA Potassium Chloride/Sodium Chloride (Normal Saline W/20 Meq Kcl) 20 meq in 1,000 mls @ 100 mls/hr IV .Q10H [facility]IANA Stop: 05/22/24 14:14 Last Infusion: 05/22/24 13:41 Dose: Infused Documented By: Admin: 05/22/24 04:42 Dose: 100 mls/hr Documented By: VERONIKA Levothyroxine Sodium (Levothyroxine Sodium 112 Mcg Tablet) 112 mcg PO DAILYBB ELIANA Stop: 06/21/24 06:29 Last Admin: 05/22/24 07:09 Dose: 112 mcg Documented By: JESSICA Imaging Data Radiologist's Impression: Chest X-Ray 05/22/24 01:29 EXAM: XR chest 1V portable CLINICAL HISTORY: Dysrhythmia TECHNIQUE: An X-ray image of the chest is obtained in AP projection. COMPARISON: 07/08/2014. FINDINGS: Pulmonary Parenchyma: Small opacities seen in the lower zones of both lungs, more prominent on the left side. Prominent perihilar bronchovascular markings. Hyperinflated both lungs. No evidence of pleural effusion or pleural thickening. Heart and Mediastinum: Mild cardiomegaly. Atherosclerotic changes of the aortic arch. No mediastinal widening or masses. No hilar or mediastinal lymphadenopathy. Bony Thorax: Degenerative changes of the visualized skeleton. Bony thorax appears intact without fractures or deformities. Soft Tissues: Soft tissues overlying the chest wall are unremarkable. IMPRESSION: 1. Mild cardiomegaly with perihilar congestion. 2. Small right lower zone opacity. Redemonstration of left lower zone opacity. This could be due to atelectasis/inflammatory or infectious process. Need clinical correlation. 3. Otherwise, no significant interval changes. Electronically signed by Arturo Durham 05-22-2024 03:28 AM Discharge Plan Visit Data Chief Complaint: Tachycardia Stated Complaint: RAPID HEART BEAT ED Provider: Zunilda Garrett Discharge Problem: Ventricular tachycardia Patient Disposition: Admitted As Inpatient Condition: Good Discharge Instructions Interventions: ED Discharge Assessment Last Done: 05/22/24 04:51
[2024-05-22] MEDS ORDERED: NON-FORMULARY MEDICATION (Coenzyme Q10 100 mg capsule) PO SCH (09:00)
[2024-05-22] MEDS: APIXABAN 5 MG TABLET PO SCH (10:57)
[2024-05-22 11:09] VITALS: PULSE 69
--- NOTE | 2024-05-22 11:14 | XCELERA ---
[id number]
--- NOTE | 2024-05-22 12:44 | Electrocardiogram Report ---
Test Reason : Blood Pressure : */* mmHG Vent. Rate : 170 BPM Atrial Rate : 166 BPM P-R Int : * ms QRS Dur : 128 ms QT Int : 298 ms P-R-T Axes : * -59 100 degrees QTcB Int : 501 ms Wide QRS tachycardia Left axis deviation Left bundle branch block Abnormal ECG When compared with ECG of 09-Sep-2023 15:57, (unconfirmed) Significant changes have occurred Confirmed by Leonidas Guaman ([id number]) on 05/22/2024 12:44:00 PM Referred By: REFERRED SELF Confirmed By: Leonidas Guaman
--- NOTE | 2024-05-22 14:42 | Cardiology Consultation ---
Date of Consultation May 22, 2024 Assessment & Plan (1) Atrial fibrillation with RVR: 2. Prior syncopequestion vasovagal versus bradycardia arrhythmia. ILR placed 09/2023 3. Chronic left bundle branch block 4. Hypothyroidism 5. CVI post bilateral GSV ablation Reviewed patient's EKGs, telemetry and report from her ILR. Tachycardic up to the 180s, mostly irregular and consistent with atrial fibrillation. Has had periods of more regularity question some atrial flutter versus other SVT. For now would treat as atrial fibrillation. Patient very concerned about recurrence and with fast initial rate we will continue on amiodarone initially. Will hold off on adding AV belkis agent with her prior bradycardia. Long-term likely transition to different antiarrhythmic or trial of low dose beta-hannah. Will arrange further evaluation with EP as an outpatient next week for opinion whether may have some SVT/Aflutter potentially amenable ablation. From a cardiac standpoint okay with discharge today. Home on: Amiodarone 200 mg twice daily for next 2 weeks Eliquis 5 mg twice daily ([id number]). Anticoagulation uninterrupted for the next 4 weeks following cardioversion. Long-term we talked about risks/benefits of continued anticoagulation. She would prefer not to be on meds senior living but understands benefit. To discuss further on follow-up. History of Present Illness Attending Physician: Sonal Pinto MD History of Present Illness Ms. Cordova is a very pleasant 73-year-old woman well-known to me from the outpatient setting who was admitted overnight the setting of palpitations and SVT with aberrancy. Past medical history includes prior syncopal event 08/2023 with reported EMS documented bradycardia down to the 30s. Event thought potentially vasovagal. In the setting of chronic left bundle branch block had ILR placed by Dr. Marie 09/2023. Since that time no significant arrhythmia. Yesterday states she was feeling well. Had 1 alcoholic drink around 9 PM. Around midnight developed acute heart racing, nausea. Presented to ED with heart rates noted in the 170s to 180s. ECG consistent with atrial fibrillation with aberrancy. Received multiple boluses of amiodarone before was successfully electrically cardioverted in the ED. Since that time has remained in sinus rhythm. Currently feeling well, asymptomatic. Initial HS TropI negative. Repeat echo today showed preserved LV function with no new regional wall motion abnormalities. RV mildly dilated with normal function. Mild MR. Allergies Allergy/AdvReac Type Severity Reaction Status Date / Time bacitracin Allergy Mild INFLAMMATIO Verified 12/23/23 14:39 N neomycin Allergy Mild INFLAMMATIO Verified 12/23/23 14:39 N polymyxin B Allergy Mild INFLAMMATIO Verified 12/23/23 14:39 N tar shampoo Allergy Severe hives/welts Uncoded 12/23/23 14:39 on skin, looked like large bug bites Home Medications Medication Instructions Recorded Confirmed Type cetirizine 10 mg capsule (Zyrtec) 10 mg PO DAILY 09/20/23 05/22/24 History fluticasone propionate 50 2 spray intranasal DAILY #16 grams 10/04/23 05/22/24 Rx mcg/actuation nasal spray,suspension coenzyme Q10 100 mg capsule 100 mg PO DAILY 12/23/23 05/22/24 History azelastine 137 mcg (0.1 %) nasal 2 spray intranasal .COMPLEX #30 mL 02/18/24 05/22/24 Rx spray atorvastatin 10 mg tablet 10 mg PO DAILY #90 tabs 04/28/24 05/22/24 Rx levothyroxine 112 mcg tablet 112 mcg PO DAILY #90 tabs 04/28/24 05/22/24 Rx amiodarone 200 mg tablet 200 mg PO BID #60 tabs 05/22/24 Rx apixaban 5 mg tablet (Eliquis) 5 mg PO BID #60 tabs 05/22/24 Rx Patient History Medical History Pain in both lower legs Trochanteric bursitis History of ankle fracture Surgical History History of tubal ligation History of tooth extraction History of colonoscopy Family History Father Myocardial infarction Allergic rhinitis Asthma Sister Cancer of parotid gland Mother Hypertension Hypercholesterolemia Grandmother (Maternal) Ovarian cancer Brother Renal cell carcinoma Denies family history of Prostate cancer Diabetes Breast cancer Colorectal cancer Social History Smoking Status: Never smoker Second Hand Exposure: Yes; Do You Dip or Chew Tobacco: No; Hx Alcohol Use: Yes Alcohol type: other Hx Substance Use: No Preferred Language: Lao Communication Ability: Effective Visual Impairment: No Limitations Hearing Ability: Normal Closer On Required: No Beliefs That Will Affect Care: None marital status: Current Living Situation: Spouse Current Living Situation Comment: lives with ex- current occupational status: retired current occupation: retired from career with sales and customer service with [employer] Feels Safe at Home: Yes Childhood Exposure to Second-Hand Smoke: Yes Diet: regular caffeine: No during the past year weight has: remained stable Dental Care, Regularly: Yes Physical Activity Frequency: 1-2 Times per Week Seatbelt Use: always Sunscreen Use: Yes Assistive Devices: None Review of Systems Review of Systems: All systems reviewed & are unremarkable except as noted in HPI & below Physical Exam Physical Exam: General: Comfortable HEENT: Sclerae anicteric Lungs: Clear to auscultation bilaterally, no crackles or wheezes Cardiac: Regular rate and rhythm, no murmurs. Vascular: 2+ radial, DP pulses. No bruits Abdomen: Soft, nontender Extremities: Well perfused, no peripheral edema Neuro: Nonfocal Psych: Alert orient x3, normal affect and mood Results & Data Vital Signs (Past 12 Hours) Vital Signs Pulse Pulse Resp BP BP Pulse Ox O2 Del Method 05/22/24 10:12 69 20 139/80 99 Room Air 05/22/24 09:09 59 L 14 139/76 95 05/22/24 08:06 66 16 112/66 97 Room Air 05/22/24 07:50 60 05/22/24 07:00 71 19 156/87 H 98 Room Air 05/22/24 06:14 64 17 132/80 97 Room Air 05/22/24 05:00 65 18 145/88 H 98 Room Air 05/22/24 04:50 75 17 145/88 H 96 Room Air 05/22/24 04:50 73 17 95 Room Air 05/22/24 04:40 66 18 134/87 97 Room Air 05/22/24 04:35 67 20 132/88 99 Room Air 05/22/24 04:30 66 18 152/87 H 99 Room Air 05/22/24 04:25 65 20 144/79 H 99 Room Air 05/22/24 04:20 68 16 129/82 97 Room Air 05/22/24 04:15 71 18 144/80 H 96 Room Air 05/22/24 04:10 72 20 130/79 97 Room Air 05/22/24 04:05 70 16 138/83 99 Nasal Cannula 05/22/24 04:00 69 18 135/88 99 Nasal Cannula 05/22/24 03:55 72 18 138/82 99 Nasal Cannula 05/22/24 03:50 69 20 95/71 L 94 Nasal Cannula 05/22/24 03:45 73 20 100/76 98 Nasal Cannula 05/22/24 03:41 82 05/22/24 03:40 157 H 18 108/74 100 Nasal Cannula 05/22/24 03:35 160 H 20 107/77 96 Room Air 05/22/24 03:00 158 H 20 132/93 97 Room Air 05/22/24 02:31 166 H 20 129/71 95 Room Air O2 Flow Rate 05/22/24 10:12 05/22/24 09:09 05/22/24 08:06 05/22/24 07:50 05/22/24 07:00 05/22/24 06:14 05/22/24 05:00 05/22/24 04:50 05/22/24 04:50 05/22/24 04:40 05/22/24 04:35 05/22/24 04:30 05/22/24 04:25 05/22/24 04:20 05/22/24 04:15 05/22/24 04:10 05/22/24 04:05 2 05/22/24 04:00 2 05/22/24 03:55 4 05/22/24 03:50 4 05/22/24 03:45 4 05/22/24 03:41 05/22/24 03:40 4 05/22/24 03:35 05/22/24 03:00 05/22/24 02:31 PG Care Time/CCT Total # of Minutes Spent Total Time Spent with Patient: Total time spent is greater than 50% in coordination of care (as documented) at patient's floor/unit and/or counseling patient: Coding Level of Care Code 58675 ER DEPT VISIT MOD LVL 4 Diagnoses Atrial fibrillation with RVR I48.91
--- NOTE | 2024-05-22 15:32 | Discharge Summary ---
Discharge Summary Date of Service May 22, 2024 Principal Dx & Hospital Course #1 = Principal Diagnosis (1) Atrial fibrillation with RVR: (2) Atrial premature depolarization with aberrant ventricular conduction: (3) Left bundle branch block: (4) Palpitations: (5) History of bradycardia: (6) Tachy-wiley syndrome: Plan The patient is a 73-year-old female with a past medical history including syncope, nontoxic multinodular goiter/hypothyroidism, osteopenia, LBBB, hypercholesterolemia, chronic venous insufficiency s/p bilat GSV ablation, and disorders of trigeminal nerve.she P/W complaint of increased heart rate while working in her basement, and radiating up into her neck. She has had a cardiac implantable electronic device implanted and monitored by Dr. Rober Marie. Upon arrival to emergency department, patient was found to be in atrial fibrillation with RVR with aberrancy, with rate up to a maximum of 218. Patient remained in this variable rapid rate from 150s to 180s for at least 3 hours, despite being placed on amiodarone bolus/drip, and then underwent synchronized cardioversion by ED physician Dr. Garrett. She was then referred for evaluation to the [facility] service after successful conversion to normal sinus rhythm ranging in the 70s to 80s. Patient does have a known history of sinus bradycardia, for which the device had been implanted initially and had been noted to have bradycardic intervals in the past. #Atrial fibrillation with RVR with aberrancy/history of bradycardia/tachybradycardia syndrome/left bundle branch block-Patient had initially been started on amiodarone bolus/drip, with rate primarily be maintained in the 150s to 180s. She did undergo synchronized cardioversion after conscious sedation as noted by the ED and she successfully converted to normal sinus rhythm in the 70s to 80s with maintained blood pressure Seen by cardiology and recommended evaluation with electrophysiology as an outpatient next week for possible ablation in the future. She had no further arrhythmias after cardioversion. She had no significant abnormalities of electrolytes and her renal function and blood count was normal. TSH was mildly elevated at 6.5 with a normal free T4. Echocardiogram with preserved EF, mildly dilated RV with normal RV function, abnormal septal motion consistent with conduction abnormality, mild MR -Discharged home on amiodarone 200 Mg p.o. twice daily -Started apixaban 5 mg p.o. twice daily -Follow-up with Dr. Marie of electrophysiology scheduled for next Saturday to discuss ablation #Hyperlipidemia- Continue atorvastatin 10 mg daily #Hypothyroidism-TSH mildly elevated at 6 with normal free T4 -Continue levothyroxine 112 mcg daily -Follow-up with PCP #Abnormal chest x-ray-chest x-ray showed small bilateral lower zone opacities could be due to atelectasis/inflammatory or infectious process. She had normal lung exam and no pulmonary symptoms. -Recommend follow-up chest x-ray in 2 weeks with PCP to ensure resolution-if persists on repeat chest x-ray, would get chest CT DVT prophylaxis-Eliquis Disposition-stable for discharge to home Notes For Next Care Provider Eliquis is going to be expensive after the first month is free-consider converting to Coumadin after the first month versus giving samples of Eliquis Medication Changes From Visit Added Eliquis 5 Mg p.o. twice daily Added amiodarone 200 mg p.o. twice daily Admission HPI Per Admitting Provider The patient is a 73-year-old female with a past medical history including syncope, nontoxic multinodular goiter, osteopenia, left bundle branch block, hypothyroidism, hypercholesterolemia, colonic diverticulosis, seborrheic dermatitis, chronic venous insufficiency, post bilateral GSV ablation, and disorders of trigeminal nerve.The patient presented to the emergency department with complaint of increased heart rate while working in her basement, and radiating up into her neck. She had a cardiac implantable electronic device planted and monitored by Dr. Rober Marie. Upon arrival to emergency department, patient was found to be in atrial fibrillation with RVR, with rate up to a maximum of 218. Patient remained in this variable rapid rate from 150s to 180s for at least 3 hours, and then underwent synchronized cardioversion by Dr. Garrett., and then referred for evaluation to the [facility] service after successful conversion to normal sinus rhythm ranging in the 70s to 80s. Patient does have a known history of sinus bradycardia, for which the device had been implanted and had been noted to have bradycardic intervals in the past. Discharge Exam Constitutional WD/WN, vitals as above Neck trachea midline, no thyromegaly Respiratory normal respiratory effort, lungs clear to auscultation Cardiovascular RRR, no murmur, no edema Chest (Breasts) Chest: normal inspection of chest Gastrointestinal (Abdomen) normal bowel sounds, soft, nontender, no hepatosplenomegaly Musculoskeletal Extremities: extremities normal to inspection; no cyanosis and no clubbing Skin no rashes, warm and dry Neurologic moves all extremities and awake; no focal motor deficits Psychiatric A+Ox3, euthymic affect Lymphatic no lymphedema Discharge Plan Discharge Items Patient Disposition: Home - Self-Care Reason For Visit: S/P CARDIOVERSION A-FIB RVR ABERRANT CONDUCTION Discharge Diagnosis: Rapid atrial fibrillation Condition on Discharge: Good Activity: Resume your previous activity Non-emergency contact: Primary Care Provider and Notched Blade Loader Call non-emergency contact if: you have any medication questions and your symptoms worsen Follow-up/Referrals: Soledad Caballero CRNP [Primary Care Provider] - (Follow-up within 1 to 2 weeks) Rober Marie MD [Physician] - 05/27/24 (Follow-up on Saturday as scheduled) Diet: Regular Addtl Attending Provider Instructions: You were admitted with a rapid irregular heart rhythm called atrial fibrillation. You had a cardioversion to get your heart back into a normal rhythm. Please remain on the Eliquis to help prevent strokes. This is a blood thinner. Please remain on the amiodarone which will help keep you from going into atrial fibrillation. Follow-up with a fortune cookie maker next Saturday as planned to discuss possible cardiac ablation. If you have a return of rapid heart rate, please call your doctor or come to the ER for further evaluation. Your chest x-ray did show some mild abnormalities. Please have your primary care physician repeat a chest x-ray in 1 to 2 weeks to see if this has gone away since your rapid heart rate improved. Here are some guidelines about taking Eliquis: There is and increased risk of blood clots if you stop taking Eliquis. Do not stop taking Eliquis without talking to your doctor. Stopping Eliquis increases your risk of having a stroke. There is and increased risk of bleeding. Eliquis can cause bleeding which can be serious and may lead to . This is because Eliquis is a blood thinner medicine (anticoagulant) that lowers blood clotting. During treatment with Eliquis you are likely to bruise more easily, and it may take longer for bleeding to stop. * If you ever cannot get bleeding to stop please report to the ER * If you have a bruise that is large/painful or swollen you should also be seen by a medical provider Call your doctor or get medical help right away if you or your child develop any of these signs or symptoms of bleeding: unexpected bleeding or bleeding that lasts a long time, such as: * Nose bleeds that happen often * unusual bleeding from the gums * bleeding that is severe or you cannot control * red, pink or brown urine * bright red or black stools (looks like tar) * cough up blood or blood clots * vomit blood or your vomit looks like coffee grounds If you have a fall and hit your head, please come to the ER and get checked out. Being on a blood thinner increases your risk of brain bleeding with falls. Avoid high risk activities, such as: * standing on tall ladders * riding motorcycles * anything where you are high risk for falls or trauma Avoid taking NSAIDs (pain medication) while you are taking a blood thinner. This includes: * Ibuprofen, Aleve Advil, Naproxen. * If you are ever unsure you can ask your doctor or pharmacist. * Tylenol is SAFE to take. If you have any new or worsening chest pain or shortness of breath please return to the ER. Pending Studies at Discharge: No Stand-Alone Forms: My [facility] [employer], Smoking Cessation Medications and DC Order Prescriptions: New Eliquis 5 mg Tablet 5 mg PO BID Qty: 60 0RF amiodarone 200 mg tablet 200 mg PO BID Qty: 60 0RF Continued fluticasone propionate 50 mcg/actuation spray,suspension 2 spray INTNAS DAILY Qty: 16 5RF Rx Instructions: administer into each nostril azelastine 137 mcg (0.1 %) spray,non-aerosol 2 spray INTNAS .COMPLEX Qty: 30 5RF Rx Instructions: 2 sprays intranasal every evening; administer into each nostril atorvastatin 10 mg tablet 10 mg PO DAILY Qty: 90 3RF Rx Instructions: AT BEDTIME levothyroxine 112 mcg tablet 112 mcg PO DAILY Qty: 90 3RF coenzyme Q10 100 mg capsule 100 mg PO DAILY Zyrtec 10 mg Capsule 10 mg PO DAILY Discharge Orders: Discharge Order (Routine); Ordered 05/22/24 Ordered By: Sonal Pinto Admission Data Admit Date/Time: 05/22/24 04:06 Attending Provider: Sonal Pinto Admit Provider: Nathan Malhotra Primary Care Provider: Soledad Caballero Other Providers: Nathan Malhotra; Rober Dial Hospital Stay Data Consultations 05/22/24 03:49 ED Decision to Admit Stat 05/22/24 04:50 Consult Cardiology Routine Diagnostic Imagining Performed Echocardiogram Chest x-ray Pending Results Patient Have Any Pending Studies at Discharge: No Discharge Instructions Given to Patient (Per Discharging Provider) You were admitted with a rapid irregular heart rhythm called atrial fibrillation. You had a cardioversion to get your heart back into a normal rhythm. Please remain on the Eliquis to help prevent strokes. This is a blood thinner. Please remain on the amiodarone which will help keep you from going into atrial fibrillation. Follow-up with a fortune cookie maker next Saturday as planned to discuss possible cardiac ablation. If you have a return of rapid heart rate, please call your doctor or come to the ER for further evaluation. Your chest x-ray did show some mild abnormalities. Please have your primary care physician repeat a chest x-ray in 1 to 2 weeks to see if this has gone away since your rapid heart rate improved. Here are some guidelines about taking Eliquis: There is and increased risk of blood clots if you stop taking Eliquis. Do not stop taking Eliquis without talking to your doctor. Stopping Eliquis increases your risk of having a stroke. There is and increased risk of bleeding. Eliquis can cause bleeding which can be serious and may lead to . This is because Eliquis is a blood thinner medicine (anticoagulant) that lowers blood clotting. During treatment with Eliquis you are likely to bruise more easily, and it may take longer for bleeding to stop. * If you ever cannot get bleeding to stop please report to the ER * If you have a bruise that is large/painful or swollen you should also be seen by a medical provider Call your doctor or get medical help right away if you or your child develop any of these signs or symptoms of bleeding: unexpected bleeding or bleeding that lasts a long time, such as: * Nose bleeds that happen often * unusual bleeding from the gums * bleeding that is severe or you cannot control * red, pink or brown urine * bright red or black stools (looks like tar) * cough up blood or blood clots * vomit blood or your vomit looks like coffee grounds If you have a fall and hit your head, please come to the ER and get checked out. Being on a blood thinner increases your risk of brain bleeding with falls. Avoid high risk activities, such as: * standing on tall ladders * riding motorcycles * anything where you are high risk for falls or trauma Avoid taking NSAIDs (pain medication) while you are taking a blood thinner. This includes: * Ibuprofen, Aleve Advil, Naproxen. * If you are ever unsure you can ask your doctor or pharmacist. * Tylenol is SAFE to take. If you have any new or worsening chest pain or shortness of breath please return to the ER. Total Time Total Time Spent Total Time Spent (In Minutes): 35 minutes Coding Level of Care Code 33060 INP/OBS DISCH >30 MIN Diagnoses Atrial fibrillation with RVR I48.91 Atrial premature depolarization with aberrant ventricular conduction I49.1 Left bundle branch block I44.7 Palpitations R00.2 History of bradycardia Z87.898 Tachy-wiley syndrome I49.5
[2024-05-22 15:48] VITALS: BP 137/73; RESP 16; O2SAT 98
--- NOTE | 2024-05-22 16:27 | Electrocardiogram Report ---
Test Reason : Blood Pressure : */* mmHG Vent. Rate : 161 BPM Atrial Rate : * BPM P-R Int : * ms QRS Dur : 138 ms QT Int : 368 ms P-R-T Axes : * -55 105 degrees QTcB Int : 602 ms Wide QRS tachycardia Left axis deviation Left bundle branch block Abnormal ECG When compared with ECG of 22-May-2024 01:25, No significant change Confirmed by Leonidas Guaman ([id number]) on 05/22/2024 4:26:57 PM Referred By: REFERRED SELF Confirmed By: Leonidas Guaman
--- NOTE | 2024-05-22 16:28 | Electrocardiogram Report ---
Test Reason : Blood Pressure : */* mmHG Vent. Rate : 68 BPM Atrial Rate : 68 BPM P-R Int : 166 ms QRS Dur : 134 ms QT Int : 458 ms P-R-T Axes : 53 -24 87 degrees QTcB Int : 487 ms Normal sinus rhythm Left bundle branch block Abnormal ECG When compared with ECG of 22-May-2024 02:17, (unconfirmed) Significant changes have occurred Confirmed by Leonidas Guaman ([id number]) on 05/22/2024 4:28:10 PM Referred By: REFERRED SELF Confirmed By: Leonidas Guaman
== END 2024-05-22 16:31 | disposition home or self-care (01) ==
LOC: SUATTDRO → ED 01:12 → EDINP 01:12 → SUATTDRO 04:06 → EDINP 04:51